=== PATIENT | male | born 1950 | race Caucasian/White ===

== ENCOUNTER 2017-12-02 15:39 | Emergency (ER) | payer MEDICARE, OTHER ==
[2017-12-02 15:54] VITALS: TEMP 97.2
--- NOTE | 2017-12-02 16:13 | ED ---
General Adult HPI - General Chief complaint: Fall Stated complaint: Fall Time Seen by Provider: 12/02/17 15:44 Source: patient, EMS, RN notes reviewed Mode of arrival: EMS Limitations: no limitations - History of Present Illness Initial comments: Patient 67-year-old male who presents emergency room today by EMS, the chief complaint of fall. Patient states that his daughter began having a seizure he tried to catch her so she would not fall to the ground and fell into his truck and then to the ground. Does admit to abrasions to his nose also to the right side of his face. States he may of hit his head on the ground is unsure. States was no loss consciousness but doesn't to headache. Patient also with some pain to the right side of her ribs. Patient denies any difficulty breathing. States pains only there on palpation. Admits to abrasion and cut to the right forearm. Patient denies any other complaints or symptoms. Patient denies any recent fever, chills, shortness of breath, chest pain, back pain, abdominal pain, nausea or vomiting, numbness or tingling, dysuria or hematuria, constipation or diarrhea, visual changes, or any other complaints. - Related Data Home Medications Medication Instructions Recorded Confirmed Aspirin EC [Ecotrin Low Dose] 81 mg PO HS 07/17/14 12/02/17 Gabapentin [Gabapentin] 300 mg PO BID 07/17/14 12/02/17 Insulin Glargine [Lantus] 30 unit SQ HS 07/17/14 12/02/17 Meclizine [Antivert] 12.5 mg PO BID 07/17/14 12/02/17 Metoprolol Succinate [Toprol XL] 25 mg PO DAILY 07/17/14 12/02/17 buPROPion SR [Wellbutrin SR] 150 mg PO BID 07/17/14 12/02/17 Atorvastatin [Lipitor] 20 mg PO DAILY 05/11/16 12/02/17 Warfarin [Coumadin] 5 mg PO SUSA 05/11/16 12/02/17 busPIRone HCl [Buspar] 5 mg PO BID 05/11/16 12/02/17 Ranitidine HCl [Zantac] 300 mg PO HS 12/02/17 12/02/17 Warfarin [Coumadin] 6.25 mg PO MOTUWETHFR 12/02/17 12/02/17 Allergies Allergy/AdvReac Type Severity Reaction Status Date / Time No Known Allergies Allergy Verified 12/02/17 16:11 Review of Systems ROS Statement: Those systems with pertinent positive or pertinent negative responses have been documented in the HPI. ROS Other: All systems not noted in ROS Statement are negative. Past Medical History Past Medical History: Asthma, CVA/TIA, Diabetes Mellitus, Hypertension, Sleep Apnea/CPAP/BIPAP Additional Past Medical History / Comment(s): hospitalized recently for UTI & problems w/low blood sugar, couple TIA's several yrs. ago-no residual effects, hx. colon polyps, constipation, supposed to use CPAP History of Any Multi-Drug Resistant Organisms: None Reported Past Surgical History: Bariatric Surgery, Heart Catheterization, Joint Replacement, Pacemaker Additional Past Surgical History / Comment(s): lap band surg., right knee replaced, aortic valve replaced & aneurysm repaired Past Anesthesia/Blood Transfusion Reactions: No Reported Reaction Type of Cardiac Device: Permanent Pacemaker Device Placement Date:: 2011 Past Psychological History: No Psychological Hx Reported Smoking Status: Never smoker Past Alcohol Use History: None Reported Past Drug Use History: None Reported - Past Family History Mother Sister(s) Family Medical History: Cancer Father Family Medical History: Cancer General Exam - General Exam Comments Initial Comments: General: The patient is awake and alert, in no distress, and does not appear acutely ill. Eye: Pupils are equal, round and reactive to light, extra-ocular movements are intact. No nystagmus. There is normal conjunctiva bilaterally. No signs of icterus. Ears, nose, mouth and throat: There are moist mucous membranes and no oral lesions. Neck: The neck is supple, there is no tenderness or JVD. Cardiovascular: There is a regular rate and rhythm. No murmur, rub or gallop is appreciated. Respiratory: Lungs are clear to auscultation, respirations are non-labored, breath sounds are equal. No wheezes, stridor, rales, or rhonchi. Gastrointestinal: Soft, non-distended, non-tender abdomen without masses or organomegaly noted. There is no rebound or guarding present. No CVA tenderness. Bowel sounds are unremarkable. Musculoskeletal: Normal ROM. Tender to the right lateral ribs. No step-off deformity. No bruising or swelling. Strength 5/5. Sensation intact. Pulses equal bilaterally 2+. Neurological: A&O x 3. CN II-XII intact, There are no obvious motor or sensory deficits. Coordination appears grossly intact. Speech is normal. Skin: Patient does have abrasion to the nose. Also small abrasion to the right side of the face just anterior to the right ear. No active bleeding in these areas. Psychiatric: Cooperative, appropriate mood & affect, normal judgment. Limitations: no limitations Course Vital Signs 12/02/17 12/02/17 15:47 16:25 Temperature 97.2 F L Pulse Rate 82 60 Respiratory 16 Rate Blood Pressure 190/88 155/73 O2 Sat by Pulse 98 98 Oximetry Medical Decision Making - Medical Decision Making Case discussed in detail with attending physician Dr. Parks. Patient reexamined at this time shows no signs of distress resting comfortably. The patient's CT negative for any acute abnormalities. Results were discussed with the patient. Patient's INR elevated at 4.1 here in emergency room. Patient doing well at this time. Advised to hold Coumadin tonight. Advised follow-up the family doctor have repeat INR checked the next 2 days. Advised to return to emergency room if there is any increased headache or for any other concerns. Patient and at bedside state understanding and are in agreement. - Lab Data Lab Results 12/02/17 Range/Units 16:25 PT 36.6 H (9.0-12.0) sec INR 4.1 H (<1.2) Disposition Clinical Impression: Fall, Head injury, Multiple abrasions Disposition: HOME SELF-CARE Condition: Stable Instructions: Abrasion (ED), Head Injury (ED) Additional Instructions: Please hold dose of Coumadin tonight. Please follow-up family doctor in the next 1-2 days have repeat INR check. Please return to emergency room for any increased headache, or any other concerns as discussed. Referrals: Vivian Tyler MD [Primary Care Provider] - 1-2 days Time of Disposition: 17:45
--- NOTE | 2017-12-02 17:04 | CT ---
EXAMINATION TYPE: CT brain cspine wo con DATE OF EXAM: 12/02/2017 COMPARISON: NONE HISTORY: Fall today with headache and neck pain. CT DLP: 1978.3 mGycm. Automated Exposure Control for Dose Reduction was Utilized. TECHNIQUE: CT scan of the head and cervical spine are performed without contrast. FINDINGS: There is no acute intracranial hemorrhage or midline shift identified. There is ventricul ar and sulcal prominence consistent with diffuse cerebral atrophy. The calvarium is intact. The glob es are intact and the visualized sinuses are clear. Cervical spine is visualized in its entirety from C1 through upper thoracic levels and demonstrates s atisfactory alignment without evidence of acute fracture or dislocation. Prevertebral soft tissue ap pears within normal limits. The C1-C2 articulation is within normal limits on the coronal images. Vertebral body heights are maintained. There is mild to moderate spurring and disc space narrowing C5 -C6 and C6-C7 levels. Posterior spur disc complex is effacing anterior thecal sac C5-C6 level on sagi ttal images. Review of axial images show the C2-C3, C3-C4, and C4-C5 levels to appear within normal limits. Axial images at C5-C6 level show posterior spur disc complex effacing anterior thecal sac and causing asymmetric mild to moderate right-sided neural foraminal narrowing. Left-sided neural foramen is pat ent. Axial images at C6-C7 level shows left spur disc complex effacing anterior thecal sac, bilateral neur al foramina are patent. Axial images at C7-T1 level are felt within normal limits. Visualized thyroid gland is unremarkable. There is partial visualization of pacemaker wires. Visualiz ed lung apices are clear. Exam is slightly suboptimal secondary to patient's large body habitus. Soft tissue density right external auditory canal is felt to reflect cerumen. IMPRESSION: 1. There is no acute fracture or dislocation evident in the cervical spine. 2. No acute intracranial hemorrhage or midline shift is seen.
--- NOTE | 2017-12-02 17:05 | XR ---
EXAMINATION TYPE: XR chest 2V, XR ribs RT DATE OF EXAM: 12/02/2017 COMPARISON: NONE HISTORY: Chest and right-sided rib pain after fall injury. TECHNIQUE: Frontal and lateral views of the chest are obtained. A frontal and oblique images of righ t-sided ribs are acquired. FINDINGS: There is no focal air space opacity, pleural effusion, or pneumothorax seen. The cardiac silhouette size is enlarged with multi lead pacemaker. Sternal wires are present. There is high den sity cardiac valvular ring seen on lateral view. There is ectatic aorta noted. The osseous structures are intact. Dedicated images of right-sided ribs show no acute displaced fracture. Overlying soft tissue is unrem arkable. There is partial visualization of lap band device epigastric region. IMPRESSION: 1. No acute cardiopulmonary process. 2. No acute displaced right-sided rib fractures are identified.
[2017-12-02 17:16] LABS: INR 4.1 (<1.2); Prothrombin Time 36.6 sec (9.0-12.0)
[2017-12-02 18:30] VITALS: BP 172/75; PULSE 65; RESP 18
== END 2017-12-02 18:30 | disposition home or self-care (01) ==
LOC: EC 15:39
DX: S00.31XA Abrasion of nose, initial encounter (principal); S50.811A Abrasion of right forearm, initial encounter; E11.9 Type 2 diabetes mellitus without complications; I10 Essential (primary) hypertension; G47.30 Sleep apnea, unspecified; Z99.89 Dependence on other enabling machines and devices; Z86.73 Personal history of transient ischemic attack (TIA), and cerebral infarction without residual deficits; Z79.4 Long term (current) use of insulin; Z79.82 Long term (current) use of aspirin; Z79.899 Other long term (current) drug therapy; Z79.01 Long term (current) use of anticoagulants; W18.00XA Striking against unspecified object with subsequent fall, initial encounter; Y92.009 Unspecified place in unspecified non-institutional (private) residence as the place of occurrence of the external cause
CPT/HCPCS: 70450; 71046; 72125; 85610; 99284